=== PATIENT | female | born 1965 | race Caucasian/White ===

== ENCOUNTER 2019-09-25 20:08 | Emergency (ER) | payer OTHER ==
[~2019-09-25] VITALS: Ht 170.2 cm; Wt 71.7 kg
[2019-09-25] MEDS ORDERED: NAPROSYN500 MG PO (23:33)
[2019-09-25 23:46] VITALS: BP 118/79
--- NOTE | 2019-09-26 08:14 | EKG ---
[facility] [place] [address] ELECTROCARDIOGRAM REPORT Name: RICK FERRARA Room #: DEP [facility]#: [id number] Admission: 09/25/19 Attend Phys: Discharge: 09/25/19 Date of : 63 Report #: [id number] THIS REPORT FOR: cc: Thuy Hernandez MD,Thuy Snider,Abebe Segal MD ~ THIS REPORT FOR: //name// [facility] ED Test Date: 2019-09-25 Test Time: 23:19:50 Pat Name: RICK FERRARA Department: Room: Gender: Jewel Bearing Turner: [place] : 1965 Requested By: Evgeny Rand Order Number: [id number] MD: Abebe Snider Measurements Intervals [place] Rate: 59 P: 62 RI: 146 QRS: 67 QRSD: 99 T: 56 QT: 437 QTc: 433 Interpretive Statements Sinus rhythm No previous ECG available for comparison Electronically Signed On 09-26-2019 8:14:08 CDT by Abebe Snider [email or web address] <ELECTRONICALLY SIGNED> By: Abebe Snider MD 09/26/19 0814 2319 18 Abebe Snider MD /AUDELIA
== END 2019-09-25 23:45 | disposition home or self-care (01) ==
LOC: ER 20:08
DX: M26.602 Left temporomandibular joint disorder, unspecified (principal); M54.2 Cervicalgia; Z90.89 Acquired absence of other organs; Z91.040 Latex allergy status; Z88.5 Allergy status to narcotic agent